=== PATIENT | male | born 1935 | race Caucasian/White ===

== ENCOUNTER → 2016-09-24 | Outpatient (REF) | payer MEDICARE, OTHER | LOC: M SMT 13:02 | PROVIDERS: ATTEND Urology | DX: R30.0 Dysuria (principal) ==

== ENCOUNTER → 2016-10-08 | Outpatient (CLI) | payer MEDICARE, OTHER ==
[2016-10-08 13:31] LABS: MEAN CORPUSCULAR HEMOGLOBIN 31.7 pg (27.0-33.0); MEAN CORPUSCULAR HGB CONC 34.4 g/dl (32.0-36.5); MEAN CORPUSCULAR VOLUME 92.1 fl (80.0-96.0); WHITE BLOOD COUNT 9.1 K/mm3 (4.0-10.0)
[2016-10-08 13:43] LABS: CALCIUM LEVEL 9.7 MG/DL (8.8-10.2); CREATININE FOR GFR 1.41 MG/DL (0.70-1.30); GLOMERULAR FILTRATION RATE 51.2 (>35); POTASSIUM SERUM 4.9 MEQ/L (3.5-5.1)
[2016-10-09 14:16] LABS: PSA TOTAL 0.2 ng/mL (0.0-4.0)
== END ==
LOC: M SMT 09:41
PROVIDERS: ATTEND Specialist
DX: R33.9 Retention of urine, unspecified (principal)
CPT/HCPCS: 36415; 51700; 80048; 84154; 85027; G0463

== ENCOUNTER → 2016-10-13 | Outpatient (CLI) | payer MEDICARE, OTHER ==
--- NOTE | 2016-10-13 13:02 | REP ---
Renal and bladder ultrasound: Comparison is the CT of the abdomen and pelvis dated 12/01/2007. The kidneys are normal size: The right kidney measures 11.2 x 5.3 x 5.1 cm. Left kidney measures 10.2 x 5.0 x 5.5 cm. Renal cortical echogenicity on the right is normal. On the left is slightly increased. There is no hydronephrosis, calculus or mass on the right on the left. 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 No right renal cysts are identified by ultrasound. Bladder ultrasound: The pre void bladder volume is 264 ml and the bladder is adequately distended. With color Doppler assessment there are bilateral ureteral jets into the urinary bladder. No bladder wall masses or polyps are identified. Impression: There is no hydronephrosis. There is a left renal parapelvic cyst containing mural calcification, compatible with Bosniak type 2 cyst. There are no other renal calculi. There are no renal masses. No bladder masses are identified. Signed by Reynold Rust MD 10/13/2016 12:53 P
== END ==
LOC: M SMT 10:08
PROVIDERS: ATTEND Specialist
DX: R33.9 Retention of urine, unspecified (principal); N28.1 Cyst of kidney, acquired

== ENCOUNTER → 2016-11-12 | Outpatient (REF) | payer MEDICARE, OTHER ==
[2016-11-12 14:03] LABS: BACTERIA, URINE SMALL AMOUNT; HYALINE CAST, URINE NONE SEEN /lpf (0-1); MICROSCOPIC EXAM PERFORMED; SQUAMOUS EPITHELIAL CELL URINE NONE SEEN /hpf (SMALL AMT)
== END ==
LOC: M SMT 12:58
PROVIDERS: ATTEND Specialist
DX: Z87.898 Personal history of other specified conditions (principal); Z79.899 Other long term (current) drug therapy

== ENCOUNTER → 2016-11-27 | Outpatient (REF) | payer MEDICARE, OTHER ==
[2016-11-27 11:26] LABS: RBC, URINE 0-1 /hpf (0-3); SQUAMOUS EPITHELIAL CELL URINE SMALL AMOUNT /hpf (SMALL AMT)
[2016-11-27 11:27] LABS: BACTERIA, URINE NONE SEEN; HYALINE CAST, URINE NONE SEEN /lpf (0-1); MICROSCOPIC EXAM PERFORMED
== END ==
LOC: M SMT 10:53
PROVIDERS: ATTEND Specialist
DX: R33.9 Retention of urine, unspecified (principal)

== ENCOUNTER → 2017-08-05 | Outpatient (CLI) | payer MEDICARE, OTHER ==
--- NOTE | 2017-08-06 07:45 | RADONC ---
RADIATION ONCOLOGY FOLLOWUP NOTE: DATE: 08/05/2017 CHART NUMBER: [id number] DIAGNOSIS: Prostate cancer. STAGE: II, [id number] ECOG PERFORMANCE STATUS: 0 Mr. 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 The patient presents today reporting that he is doing quite well with no complaints at this time related to his radiation therapy or disease. He has no urinary or bowel difficulties and no bone pain. REVIEW OF SYSTEMS: The patient's review of systems is noncontributory. Denies nausea, vomiting, fevers, chills, night sweats, diplopia, headaches, anxiety or depression, anorexia, weight loss, visual disturbances, chest pain, urinary or bowel difficulties, bone pain, or neurological problems. PHYSICAL EXAMINATION: The patient is a well-developed, well-nourished male in no acute distress. HEENT exam is normocephalic, atraumatic. Extraocular movements are intact. There is no palpable cervical, supraclavicular, infraclavicular, axillary, or inguinal lymphadenopathy present. Lungs are clear to auscultation and percussion. Heart has a regular rate and rhythm. Abdomen is benign with no hepatosplenomegaly, masses, or tenderness. Rectal examination reveals a normal anal sphincter tone. His prostate is smooth with no evidence of nodularity. Skeletal examination reveals no tenderness to pressure or percussion of the bony skeleton. Extremities reveal no clubbing, cyanosis, or edema. Neurologic exam is grossly intact, as is the remainder of the physical examination. ASSESSMENT: The patient is clinically BRUNILDA at this time and will be seen by us again in 1 year for further followup. He will also continue to be followed by his other physicians as well. cc: Eric Duncan Jr, MD Alejandro Rodriguez, MD
== END ==
LOC: M ONCR 10:05
PROVIDERS: ATTEND Radiology Radiation Oncology
DX: C61 Malignant neoplasm of prostate (principal)

== ENCOUNTER → 2017-09-08 | Outpatient (REF) | payer MEDICARE, OTHER | LOC: M SMT 14:13 | PROVIDERS: ATTEND Nurse Practitioner Women's Health | DX: R30.0 Dysuria (principal) ==

== ENCOUNTER → 2018-01-12 | Outpatient (CLI) | payer MEDICARE, OTHER ==
[2018-01-12 15:43] LABS: ANION GAP 7 MEQ/L (8-16); BLOOD UREA NITROGEN 22 MG/DL (7-18); CALCIUM LEVEL 9.5 MG/DL (8.8-10.2); CARBON DIOXIDE LEVEL 26 MEQ/L (21-32); CHLORIDE LEVEL 108 MEQ/L (98-107); CREATININE FOR GFR 1.56 MG/DL (0.70-1.30); GLOMERULAR FILTRATION RATE 45.4 (>35); GLUCOSE, FASTING 110 MG/DL (70-100); PROSTATIC SPECIFIC AG MONITOR 0.22 NG/ML (< 4.0); SODIUM LEVEL 141 MEQ/L (136-145)
[2018-01-12 15:52] LABS: POTASSIUM SERUM 5.7 MEQ/L (3.5-5.1)
[2018-01-12 17:18] LABS: ESTIMATED AVERAGE GLUCOSE 134 MG/DL (60-110); HEMOGLOBIN A1c 6.3 %
== END ==
LOC: M SMT 09:32
DX: Z85.46 Personal history of malignant neoplasm of prostate (principal); Z79.899 Other long term (current) drug therapy
CPT/HCPCS: 83036

== ENCOUNTER → 2018-01-15 | Outpatient (CLI) | payer MEDICARE, OTHER ==
[~2018-01-15] MED LIST: PROHANCE 279.3MG/ML 15ML VIAL (A9576) As Ordered; PROHANCE 279.3MG/ML 5ML VIAL (A9576) As Ordered
== END ==
LOC: M RAD 08:36
DX: Z85.46 Personal history of malignant neoplasm of prostate (principal); N28.1 Cyst of kidney, acquired; K76.89 Other specified diseases of liver; K44.9 Diaphragmatic hernia without obstruction or gangrene; K80.00 Calculus of gallbladder with acute cholecystitis without obstruction; K86.2 Cyst of pancreas
CPT/HCPCS: A9576

== ENCOUNTER → 2018-08-04 | Outpatient (CLI) | payer MEDICARE, OTHER | LOC: M ONCR 08:24 | DX: Z85.46 Personal history of malignant neoplasm of prostate (principal) | CPT/HCPCS: G0463 ==

== ENCOUNTER → 2019-10-25 | Outpatient (CLI) | payer MEDICARE, OTHER | LOC: M PLALAB 09:36 | PROVIDERS: ATTEND Specialist | DX: Z85.46 Personal history of malignant neoplasm of prostate (principal) ==

== ENCOUNTER → 2020-09-24 | Outpatient (REF) | payer MEDICARE, OTHER ==
[2020-09-24 14:07] LABS: APPEARANCE, URINE HAZY (CLEAR); BACTERIA, URINE AUTO NEGATIVE (NEGATIVE); BILIRUBIN, URINE AUTO NEGATIVE (NEGATIVE); BLOOD, URINE BLOOD NEGATIVE (NEGATIVE); COLOR, URINE YELLOW (YELLOW); GLUCOSE, URINE (UA) AUTO NEGATIVE (NEGATIVE); KETONE, URINE AUTO NEGATIVE (NEGATIVE); LEUKOCYTE ESTERASE, URINE AUTO 2+ (NEGATIVE); NITRITE, URINE AUTO NEGATIVE (NEGATIVE); PROTEIN, URINE AUTO 1+ mg/dL (NEGATIVE); RBC, URINE AUTO 3 /HPF (0-3); SPECIFIC GRAVITY URINE AUTO 1.014 (1.002-1.035); SQUAMOUS EPITHELIAL CELL UR AU 0 /HPF (0-6); UROBILINOGEN, URINE AUTO 0.2 mg/dL (0.0-2.0); WBC, URINE AUTO 63 /HPF (0-3)
== END ==
LOC: M SMT 13:25
PROVIDERS: ATTEND Nurse Practitioner Family
DX: N39.0 Urinary tract infection, site not specified (principal)

== ENCOUNTER → 2020-10-10 | Outpatient (REF) | payer OTHER ==
[2020-10-10 14:08] LABS: APPEARANCE, URINE CLEAR (CLEAR); BACTERIA, URINE AUTO NEGATIVE (NEGATIVE); BILIRUBIN, URINE AUTO NEGATIVE (NEGATIVE); BLOOD, URINE BLOOD NEGATIVE (NEGATIVE); COLOR, URINE YELLOW (YELLOW); GLUCOSE, URINE (UA) AUTO NEGATIVE (NEGATIVE); KETONE, URINE AUTO NEGATIVE (NEGATIVE); LEUKOCYTE ESTERASE, URINE AUTO 1+ (NEGATIVE); NITRITE, URINE AUTO NEGATIVE (NEGATIVE); PROTEIN, URINE AUTO 1+ mg/dL (NEGATIVE); RBC, URINE AUTO 8 /HPF (0-3); SPECIFIC GRAVITY URINE AUTO 1.016 (1.002-1.035); SQUAMOUS EPITHELIAL CELL UR AU 0 /HPF (0-6); UROBILINOGEN, URINE AUTO 0.2 mg/dL (0.0-2.0); WBC, URINE AUTO 17 /HPF (0-3)
== END ==
LOC: M SMT 13:02
PROVIDERS: ATTEND Nurse Practitioner Family
DX: N39.0 Urinary tract infection, site not specified (principal)
CPT/HCPCS: 51798; 81001; 87086; G0463

== ENCOUNTER → 2020-10-16 | Outpatient (CLI) | payer OTHER ==
--- NOTE | 2020-10-16 08:58 | REP ---
INDICATION: URINARY TRACT INFECTION, SITE NOT SPECIFIED/LABS 1ST COMPARISON: 10/13/2016 TECHNIQUE: Real time akers scale ultrasound examination using curved array transducer. FINDINGS: Bilateral kidneys are normal in reniform shape with increased central sinus fat and increased parenchymal echotexture consistent with chronic age-related renal disease. No hydronephrosis, nephrolithiasis or renal mass lesion. Right kidney measures 10.5 x 5.6 x 5.2 cm. Left kidney measures 10.5 x 5.7 x 6.1 cm and includes 9 mm midpole cortical cyst and 1.7 cm peripelvic cyst. Bladder demonstrates small right posterior bladder diverticulum without wall thickening or mass lesion. Bilateral ureteral jets identified. IMPRESSION: 1. Evidence for chronic medical renal disease without hydronephrosis. 2. Incidental small left renal cysts. 3. Incidental small bladder diverticulum. <Electronically signed by Brandon Ramirez > 10/16/20 [id number]
== END ==
LOC: M LAB 08:06
PROVIDERS: ATTEND Nurse Practitioner Family
DX: N18.9 Chronic kidney disease, unspecified (principal); N28.1 Cyst of kidney, acquired; N39.0 Urinary tract infection, site not specified; Z85.46 Personal history of malignant neoplasm of prostate

== ENCOUNTER → 2020-11-05 | Outpatient (REF) | payer OTHER ==
[2020-11-05 14:38] LABS: APPEARANCE, URINE HAZY (CLEAR); BACTERIA, URINE AUTO NEGATIVE (NEGATIVE); BILIRUBIN, URINE AUTO NEGATIVE (NEGATIVE); BLOOD, URINE BLOOD 1+ (NEGATIVE); COLOR, URINE YELLOW (YELLOW); GLUCOSE, URINE (UA) AUTO NEGATIVE (NEGATIVE); KETONE, URINE AUTO NEGATIVE (NEGATIVE); LEUKOCYTE ESTERASE, URINE AUTO 2+ (NEGATIVE); MUCUS, URINE SMALL (NEGATIVE); NITRITE, URINE AUTO NEGATIVE (NEGATIVE); PROTEIN, URINE AUTO 1+ mg/dL (NEGATIVE); RBC, URINE AUTO 23 /HPF (0-3); SPECIFIC GRAVITY URINE AUTO 1.016 (1.002-1.035); SQUAMOUS EPITHELIAL CELL UR AU 0 /HPF (0-6); UROBILINOGEN, URINE AUTO 0.2 mg/dL (0.0-2.0); WBC, URINE AUTO 81 /HPF (0-3)
== END ==
LOC: M SMT 13:18
PROVIDERS: ATTEND Urology
DX: N39.0 Urinary tract infection, site not specified (principal)

== ENCOUNTER → 2020-11-16 | Outpatient (CLI) | payer OTHER ==
--- NOTE | 2020-11-16 10:06 | REP ---
INDICATION: RECURRENT UTI/LABS COMPARISON: 01/28/2008. TECHNIQUE: PA/Lateral FINDINGS: Lungs: Clear, no infiltrate. Heart: Normal in size. Mediastinum: Mediastinal silhouette unremarkable. Pleural angles: Unremarkable.. Bones and soft tissues: There are mild degenerative changes of the spine without compression deformity. IMPRESSION: No acute pulmonary disease. <Electronically signed by Reynold Rodriguez > 11/16/20 [id number]
[2020-11-16 11:21] LABS: HEMATOCRIT 42.2 % (42.0-52.0); HEMOGLOBIN 13.7 g/dl (13.5-17.5); MEAN CORPUSCULAR HEMOGLOBIN 31.4 pg (27.0-33.0); MEAN CORPUSCULAR HGB CONC 32.5 g/dl (32.0-36.5); MEAN CORPUSCULAR VOLUME 96.6 fl (80.0-96.0); PLATELET COUNT, AUTOMATED 281 10^3/uL (150-450); RED BLOOD COUNT 4.37 10^6/uL (4.30-6.10); WHITE BLOOD COUNT 7.4 10^3/uL (4.0-10.0)
[2020-11-16 11:23] LABS: INR 1.03; PROTHROMBIN TIME 13.7 SECONDS (12.5-14.3)
[2020-11-16 11:40] LABS: CALCIUM LEVEL 9.2 MG/DL (8.8-10.2); CREATININE FOR GFR 1.64 MG/DL (0.70-1.30); GLOMERULAR FILTRATION RATE 42.6 (>35); POTASSIUM SERUM 4.8 MEQ/L (3.5-5.1)
--- NOTE | 2020-11-17 08:52 | ECGEPIP ---
[facility] Test Date: 2020-11-16 Pat Name: CHELA SMILEY Department: Room: - Gender: Male Consultant Intern: MARK ANTHONY : 1935 Requested By: LUCIUS Blanco Order Number: [id number] Reading MD: Abhishek Villanueva Measurements Intervals Tucker Rate: 97 P: 50 VT: 162 QRS: 86 QRSD: 98 T: 49 QT: 350 QTc: 444 Interpretive Statements Poor data quality, interpretation may be adversely affected Normal sinus rhythm INTRAVENTRICULAR CONDUCTION DELAY No prior tracing in the system Electronically Signed on 11-17-2020 8:51:43 EST by Abhishek Villanueva
== END ==
LOC: M LAB 08:59
PROVIDERS: ATTEND Urology
DX: N39.0 Urinary tract infection, site not specified (principal)

== ENCOUNTER → 2020-11-27 | Outpatient (REF) | payer OTHER ==
[~2020-11-27] MED LIST changes: +CALC1TAB42 PO; +ECOT81TA5 PO; +LOSA100T50 PO; +OMEP-221 PO; +PRAV40TA2 PO; -PROHANCE 279.3MG/ML 15ML VIAL (A9576) As Ordered; -PROHANCE 279.3MG/ML 5ML VIAL (A9576) As Ordered; +TAMS1CAP17 PO; +VITMTA PO
[2020-11-27 14:17] LABS: APPEARANCE, URINE CLEAR (CLEAR); BACTERIA, URINE AUTO NEGATIVE (NEGATIVE); BILIRUBIN, URINE AUTO NEGATIVE (NEGATIVE); BLOOD, URINE BLOOD NEGATIVE (NEGATIVE); COLOR, URINE YELLOW (YELLOW); GLUCOSE, URINE (UA) AUTO NEGATIVE (NEGATIVE); KETONE, URINE AUTO NEGATIVE (NEGATIVE); LEUKOCYTE ESTERASE, URINE AUTO 1+ (NEGATIVE); NITRITE, URINE AUTO NEGATIVE (NEGATIVE); PROTEIN, URINE AUTO NEGATIVE (NEGATIVE); RBC, URINE AUTO 1 /HPF (0-3); SQUAMOUS EPITHELIAL CELL UR AU 0 /HPF (0-6); UROBILINOGEN, URINE AUTO 0.2 mg/dL (0.0-2.0); WBC, URINE AUTO 29 /HPF (0-3)
== END ==
LOC: M SMT 13:37
PROVIDERS: ATTEND Nurse Practitioner Family
DX: N32.0 Bladder-neck obstruction (principal); N39.0 Urinary tract infection, site not specified

== ENCOUNTER → 2020-12-02 | Outpatient (CLI) | payer OTHER | LOC: M LABSMTC 08:11 | PROVIDERS: ATTEND Anesthesiology | DX: Z01.812 Encounter for preprocedural laboratory examination (principal); Z20.822 Contact with and (suspected) exposure to COVID-19 ==

== ENCOUNTER 2020-12-07 08:14 | Day surgery (SDC) | payer OTHER ==
[~2020-12-07] VITALS: Ht 180.3 cm; Wt 93.9 kg
[~2020-12-07 08:14] MED LIST changes: +LR 1,000 ML IV ONE; +ceFAZolin SOD 2 GM in IV 1 EA IV ONE
[2020-12-07] MEDS ORDERED: LIDOCAINE 2% 100MG/5ML SDV (FOR ANES.) As Ordered ONE (08:43)
[2020-12-07] MEDS ORDERED: ONDANSETRON 4MG/2ML VIAL As Ordered ONE (08:43)
[2020-12-07] MEDS ORDERED: fentaNYL 100 MCG/2 ML INJECTION (J3010) As Ordered ONE (08:43)
[2020-12-07] MEDS ORDERED: propofoL 200 MG/20 ML VIAL As Ordered ONE (08:43)
[2020-12-07] MEDS ORDERED: dexameTHASONE 4 MG/ML 1ML VIAL (J1100 PER 1MG) As Ordered ONE (08:43)
[2020-12-07] MEDS ORDERED: ACETAMINOPHEN 1000MG 100ML IV BTL (OFIRMEV) (J0131 PER 10MG) As Ordered ONE ×2 (08:47→10:28)
[2020-12-07] MEDS ORDERED: ePHEDrine SULFATE 25 MG/5 ML(5MG/ML) SYRINGE As Ordered ONE (10:23)
[2020-12-07] MEDS ORDERED: BACT800T5 PO (10:47)
[2020-12-07] MEDS ORDERED: ONDANSETRON 4MG/2ML VIAL IV PRN (12:10)
[2020-12-07] MEDS ORDERED: fentaNYL 100 MCG/2 ML INJECTION (J3010) IV PRN (12:10)
[2020-12-07] MEDS ORDERED: oxyCODONE 5MG TAB PO PRN (12:10)
[2020-12-07] MEDS ORDERED: LR 1,000 ML IV SCH (12:10)
[2020-12-07 12:14] VITALS: BP 169/78
[2020-12-07] MEDS ORDERED: ACETAMINOPHEN TAB 650MG DOSE (2X325MG) PO PRN (12:15)
--- NOTE | 2020-12-07 14:21 | RO ---
OPERATIVE NOTE DATE OF OPERATION: 12/07/2020 PREOPERATIVE DIAGNOSIS: Urethral stricture. POSTOPERATIVE DIAGNOSIS: Urethral stricture. PROCEDURE: Cystoscopy, direct vision internal urethrotomy. SURGEON: Heron Crane MD WELL PULLER HEAD: None. 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 He was brought to the operating today for treatment. DESCRIPTION OF PROCEDURE: The patient went to the operating room and general anesthesia induced. Prophylactic antibiotics infused. He was placed in the dorsal lithotomy position, prepped and draped in the usual sterile fashion. At this point, a urethrotome was inserted in the urethral meatus and advanced towards the bladder. At the level of the bulbar urethra, there was a very narrow stricture. I utilized a cold knife to incise the stricture at 12 o'clock until it was wide open. At this point, I was able to advance the urethrotome into the bladder. Of note, the patient did have a previous TURP. In the prostatic urethra, there was some calcified scar tissue, which was removed. No abnormalities were seen at that side of the bladder. Once done, the urethrotome was removed and of note once again the bulbar urethra appeared to be widely patent at this point, and there was minimal bleeding. After the urethrotome was removed, I then inserted an 18 Sinhala Blackwell catheter into the bladder. This went in without any resistance. The balloon was filled with 10 ml of sterile water and then the catheter was connected to gravity drainage. This brought conclusion of the procedure. The patient was then taken from the dorsal lithotomy position, awakened from anesthesia and transferred to the recovery room in stable condition. Estimated blood loss: 5 ml. Complications: None. Specimen: None. PLAN: The patient is to follow up with the urology clinic week for catheter removal and a voiding trial. CARLOS
== END 2020-12-07 12:20 | disposition home or self-care (01) ==
LOC: M SDC 08:14
PROVIDERS: ATTEND Urology
DX: N35.811 Other urethral stricture, male, meatal (principal); Z85.46 Personal history of malignant neoplasm of prostate; I12.9 Hypertensive chronic kidney disease with stage 1 through stage 4 chronic kidney disease, or unspecified chronic kidney disease; N18.30 Chronic kidney disease, stage 3 unspecified; Z92.3 Personal history of irradiation; K21.9 Gastro-esophageal reflux disease without esophagitis; E78.00 Pure hypercholesterolemia, unspecified; M15.9 Polyosteoarthritis, unspecified; K44.9 Diaphragmatic hernia without obstruction or gangrene; Z79.899 Other long term (current) drug therapy
CPT/HCPCS: 52276; J0131; J0690; J1100; J2405; J3010

== ENCOUNTER → 2021-07-22 | Outpatient (REF) | payer OTHER ==
[~2021-07-22] MED LIST changes: +BACT800T5 PO; -LR 1,000 ML IV ONE; -ceFAZolin SOD 2 GM in IV 1 EA IV ONE
[2021-07-22 14:47] LABS: APPEARANCE, URINE CLEAR (CLEAR); BACTERIA, URINE AUTO NEGATIVE (NEGATIVE); BILIRUBIN, URINE AUTO NEGATIVE (NEGATIVE); BLOOD, URINE BLOOD NEGATIVE (NEGATIVE); COLOR, URINE YELLOW (YELLOW); GLUCOSE, URINE (UA) AUTO NEGATIVE (NEGATIVE); KETONE, URINE AUTO NEGATIVE (NEGATIVE); LEUKOCYTE ESTERASE, URINE AUTO NEGATIVE (NEGATIVE); NITRITE, URINE AUTO NEGATIVE (NEGATIVE); PROTEIN, URINE AUTO NEGATIVE (NEGATIVE); RBC, URINE AUTO 0 /HPF (0-3); SPECIFIC GRAVITY URINE AUTO 1.009 (1.002-1.035); SQUAMOUS EPITHELIAL CELL UR AU 0 /HPF (0-6); UROBILINOGEN, URINE AUTO 0.2 mg/dL (0.0-2.0); WBC, URINE AUTO 2 /HPF (0-3)
== END ==
LOC: M SMT 13:35
PROVIDERS: ATTEND Nurse Practitioner Women's Health
DX: R30.0 Dysuria (principal)

== ENCOUNTER → 2021-10-02 | Outpatient (REF) | payer OTHER ==
[~2021-10-02] MED LIST changes: +LOSA100T45 PO; -LOSA100T50 PO; -OMEP-221 PO; +OMEP40CA5 PO
[2021-10-02 13:55] LABS: APPEARANCE, URINE CLEAR (CLEAR); BACTERIA, URINE AUTO NEGATIVE (NEGATIVE); BILIRUBIN, URINE AUTO NEGATIVE (NEGATIVE); BLOOD, URINE BLOOD NEGATIVE (NEGATIVE); COLOR, URINE YELLOW (YELLOW); GLUCOSE, URINE (UA) AUTO NEGATIVE (NEGATIVE); KETONE, URINE AUTO NEGATIVE (NEGATIVE); LEUKOCYTE ESTERASE, URINE AUTO NEGATIVE (NEGATIVE); NITRITE, URINE AUTO NEGATIVE (NEGATIVE); PROTEIN, URINE AUTO NEGATIVE (NEGATIVE); RBC, URINE AUTO 2 /HPF (0-3); SPECIFIC GRAVITY URINE AUTO 1.008 (1.002-1.035); SQUAMOUS EPITHELIAL CELL UR AU 0 /HPF (0-6); UROBILINOGEN, URINE AUTO 0.2 mg/dL (0.0-2.0); WBC, URINE AUTO 6 /HPF (0-3)
== END ==
LOC: M LABDRWAD 12:22 → M SMT 12:22
PROVIDERS: ATTEND Nurse Practitioner Women's Health
DX: C61 Malignant neoplasm of prostate (principal); N32.0 Bladder-neck obstruction; Z79.899 Other long term (current) drug therapy
CPT/HCPCS: 36415; 51798; 81001; 84153; 87086; G0463

== ENCOUNTER → 2022-08-07 | Outpatient (CLI) | payer OTHER ==
[~2022-08-07] MED LIST changes: +ISOVUE-370 76% 100ML VIAL As Ordered ONE
== END ==
LOC: M RAD 08:36
PROVIDERS: ATTEND Internal Medicine
DX: K11.21 Acute sialoadenitis (principal); K11.5 Sialolithiasis
CPT/HCPCS: 70491; Q9967

== ENCOUNTER → 2022-09-26 | Outpatient (REF) | payer OTHER ==
[~2022-09-26] MED LIST changes: -ISOVUE-370 76% 100ML VIAL As Ordered ONE
== END ==
LOC: M SFHCADAM 09:25
PROVIDERS: ATTEND Nurse Practitioner Women's Health
DX: Z85.46 Personal history of malignant neoplasm of prostate (principal)

== ENCOUNTER → 2023-09-29 | Outpatient (CLI) | payer OTHER ==
[~2023-09-29] MED LIST changes: -LOSA100T45 PO; +LOSA100T46 PO
== END ==
LOC: M LAB 08:21
PROVIDERS: ATTEND Physician Assistant
DX: Z85.46 Personal history of malignant neoplasm of prostate (principal)